=== PATIENT | female | born 1965 | race Caucasian/White ===

== ENCOUNTER 2020-01-09 10:06 | Emergency (ER) | payer OTHER ==
--- NOTE | 2020-01-09 10:33 | TELE ---
HPI - General Reason For Visit: COVID 19 TEST Time Seen by Provider: 01/09/20 10:28 History Source: Patient Exam Limitations: Clinical Condition - History of Present Illness Timing/Duration: intermittent Severity: reports: mild Associated Symptoms: reports: cough (intermittent dry cough), malaise. denies: chest pain, diaphoresis, fever/chills, headaches, loss of appetite, nausea/vomiting, seizure, shortness of breath, weakness 01/09/20 10:28 Patient with no significant past medical history present to [facility] for COVID testing to be able to visit her mother in assisted. Patient reported has been having some nasal congestion, sneezing, runny nose and intermittent dry cough for the past few days which she believes is allergy related. Denies fever, chills, shortness of breath, chest pain, palpitations. Denies recent travel or sick contacts. Denies any other symptoms Review of Systems - Review of Systems Able to Perform ROS?: Yes Limited Wolof proficient: No Constitutional: No: Chills, Fever, Malaise HEENTM: Yes: Symptoms Reported, See HPI, Nose Congestion. No: Eye Pain, Blurred Vision, Tearing, Recent change in vision, Double Vision, Cataracts, Ear Pain, Ocular Prothesis, Ear Discharge, Nose Pain, Tinnitus, Nose Bleeding, Hearing Loss, Throat Pain, Throat Swelling, Mouth Pain, Dental Problems, Difficulty Swallowing, Mouth Swelling, Other Respiratory: Yes: Symptoms reported, See HPI, Cough (intermittent dry cough). No: Orthopnea, Shortness of Breath, SOB with Exertion, SOB at Rest, Stridor, Wheezing, Productive cough, Hemoptysis, Other Cardiac (ROS): No: Symptoms Reported, See HPI, Chest Pain, Edema, Irregular Heart Rate, Lightheadedness, Palpitations, Syncope, Chest Tightness, Other ABD/GI: No: Symptoms Reported, Nausea, Vomiting Integumentary: No: Symptoms Reported, Rash Neurological: No: Symptoms reported, Headache, Weakness, Dizziness All Other Systems: Reviewed and Negative *Physical Exam - Physical Exam General Appearance: Yes: Nourished, Appropriately Dressed. No: Apparent Distress HEENT: positive: Normal ENT Inspection, Pharynx Normal Neck: positive: Supple Respiratory/Chest: negative: Chest Tender, Respiratory Distress, Accessory Muscle Use Musculoskeletal: positive: Normal Inspection Extremity: positive: Normal Capillary Refill, Normal Inspection, Normal Range of Motion Integumentary: positive: Normal Color Neurologic: positive: Fully Oriented, Alert, Normal Mood/Affect, Normal Response, Motor Strength 08/12 - Medical Decision Making 01/09/20 10:29 Patient with no significant past medical history present to [facility] for COVID testing to be able to visit her mother in assisted. Patient reported has been having some nasal congestion, sneezing, runny nose and intermittent dry cough for the past few days which she believes is allergy related. Denies fever, chills, shortness of breath, chest pain, palpitations. Denies recent travel or sick contacts. Denies any other symptoms Patient afebrile and in no acute respiratory distress. Discussed self quarantine instructions with fevers or worsening symptoms until negative cover test for all for at least a week. COVID test ordered as per patient's request. Patient to go to [facility] today for COVID testing. Patient stable for discharge Discharge Diagnosis at time of Disposition: Encounter by telehealth for suspected COVID-19 - Referrals Follow-up Referral(s): Christiano Michele MD [Primary Care Provider] - - Patient Instructions Discharge Instructions: [facility]on[facility] Instructions, [facility] COVID-19 Isolation Protocol - Discharge Disposition: HOME Condition at time of Disposition: Stable
== END 2020-01-09 10:33 | disposition home or self-care (01) ==
LOC: JVIRT 10:06
DX: Z11.59 Encounter for screening for other viral diseases (principal)
CPT/HCPCS: Q3014-GT; U0003

== ENCOUNTER 2020-02-27 12:33 | Emergency (ER) | payer OTHER | END 2020-02-27 14:20 | disposition home or self-care (01) | LOC: JVIRT 12:33 | DX: Z03.818 Encounter for observation for suspected exposure to other biological agents ruled out (principal) | CPT/HCPCS: C9803; Q3014-GT; U0003 ==